=== PATIENT | female | born 1970 | race Caucasian/White ===

== ENCOUNTER 2016-10-17 11:17 | Emergency (ER) | payer OTHER ==
[2016-10-17] MEDS ORDERED: DIPHTH,PERTUSS(ACELL),TET VAC 0.5 ML VIAL IM V ONE (12:02)
[2016-10-17] MEDS ORDERED: IBUPROFEN 600 MG TABLET ONE (12:02)
--- NOTE | 2016-10-17 12:48 | RAD ---
EXAMINATION: FINGER LEFT. HISTORY: Fall injury. Laceration left fourth and fifth digits. AP, oblique, and lateral views of the left fourth and fifth finger were obtained. Comparison:none FINDINGS: No fracture or focal destruction is identified. The joint space relationships are maintained. No soft tissue abnormality is detected. IMPRESSION: Normal radiographic evaluation of the left fourth and fifth fingers.
--- NOTE | 2016-10-17 12:49 | RAD ---
EXAMINATION:HAND-RIGHT 3 VIEWS Clinical indication: Right hand pain following fall injury. Initial encounter. Technique:3 views of the right hand were obtained. Comparison: None FINDINGS: No fracture or focal destruction is identified. The joint space relationships are maintained. No soft tissue abnormality is identified. IMPRESSION: Normal radiographic evaluation of the right hand.
--- NOTE | 2016-10-17 12:50 | RAD ---
EXAMINATION: ELBOW -RIGHT 3-4 VIEWS CLINICAL INDICATION: Right elbow pain. COMPARISON:None FINDINGS: No fracture or focal destruction is identified. The joint space relationships of the right elbow are maintained. Small focal calcific lesion involves the soft tissues adjacent olecranon. This may reflect prior tendinitis/tendinopathy. IMPRESSION: No evidence of fracture or dislocation involving the right elbow. Soft tissue changes are noted adjacent to the olecranon process which may reflect postinflammatory change.
== END 2016-10-17 13:33 | disposition home or self-care (01) ==
LOC: ED 11:17
DX: M25.521 Pain in right elbow (principal); M79.641 Pain in right hand; M79.642 Pain in left hand; S61.214A Laceration without foreign body of right ring finger without damage to nail, initial encounter; S61.215A Laceration without foreign body of left ring finger without damage to nail, initial encounter; Z23 Encounter for immunization; W01.0XXA Fall on same level from slipping, tripping and stumbling without subsequent striking against object, initial encounter; Y93.01 Activity, walking, marching and hiking; Y92.9 Unspecified place or not applicable
CPT/HCPCS: 90715; 73080; 73140; 73130; 90471; 99283 ×2; 12002 ×2; A9270